=== PATIENT | female | born 1940 | race Caucasian/White ===

== ENCOUNTER → 2018-11-06 | Day surgery (SDC) | payer MEDICARE ==
[2018-11-04 10:35] LABS: BASOPHILS % 0.6 % (0.0-1.0); EOSINOPHILS # (AUTO) 0.2 (0.0-0.4); EOSINOPHILS % 2.5 % (0.0-6.0); HEMATOCRIT 40.2 % (34.2-44.1); HEMOGLOBIN 13.4 g/dL (12.0-16.0); LYMPHOCYTES # (AUTO) 2.1 (1.0-3.2); LYMPHOCYTES % 30.2 % (18.0-39.1); MEAN CORPUSCULAR HEMOGLOBIN 30.7 pg (28-32); MEAN CORPUSCULAR HGB CONC 33.3 g/dL (31-35); MONOCYTES # (AUTO) 0.7 (0.2-0.8); MONOCYTES % 9.6 % (4.4-11.3); NEUTROPHILS # (AUTO) 3.9 (2.1-6.9); PLATELET COUNT 262 x10e3/uL (140-360); RED BLOOD COUNT 4.37 x10e6/uL (3.6-5.1)
[2018-11-04 10:45] LABS: INR 0.88; PARTIAL THROMBOPLASTIN TIME 32.3 seconds (23.8-35.5); PROTHROMBIN TIME 12.4 seconds (11.9-14.5)
[2018-11-04 11:52] LABS: ANION GAP 17.1 mmol/L (8-16); BLOOD UREA NITROGEN 24 mg/dL (7-26); BUN/CREATININE RATIO 29 (6-25); CALCIUM 9.5 mg/dL (8.4-10.2); CARBON DIOXIDE 24 mmol/L (22-29); CHLORIDE 104 mmol/L (98-107); CREATININE, SERUM 0.84 mg/dL (0.57-1.11); EST GLOMERULAR FILTRATION RATE > 60 ML/MIN (60-); GLUCOSE 100 mg/dL (74-118); POTASSIUM 4.1 mmol/L (3.5-5.1); SODIUM 141 mmol/L (136-145)
[2018-11-06] VITALS (7 sets, daily range): BP systolic 97–172; BP diastolic 58–96
[~2018-11-06] VITALS: Ht 157.5 cm; Wt 72.6 kg
[~2018-11-06] MED LIST: AMLODIPINE BESY10 MG PO; ASPIR 8181 MG PO; ASPIRIN 325 MG TAB ONE; DRAMAMINE LESS25 MG PO; FENOFIBRATE145 MG PO; FENTANYL CITRATE/PF 100MCG/2 ML INJ ONE; HEPARIN SOD (PORCINE) 1000 UNIT/ML 30ML ONE; HEPARIN SOD/SOD CHLORIDE 2,000 ML ONE; IOPAMIDOL 370 MG/ML 200 ML INFUS..BTL INJ ONE; LETROZOLE2.5 MG PO; LIDOCAINE HCL 2% LOCAL 20 ML VIAL ONE; METOPROLOL SUCC25 MG PO; MIDAZOLAM HCL 2 MG/2 ML VIAL ONE; NITROGLYCERIN/D5W 200 MCG/ML 250 ML ONE; SODIUM CHLORIDE 0.9% 1000ML 1,000 ML ONE; VERAPAMIL HCL 2.5 MG/ML 2 ML VIAL ONE; Z.0.LOSARTAN POTASS2 PO; Z.0.SERTRALINE HCL25 PO
--- OUTSIDE RECORDS SUMMARY | 2018-11-06 07:32 | XMS REPORT | Clinical Summary ---
Author Author [facility] Address Unknown Phone Unavailable Care Team Providers Care Roof Fitter Name Role Phone Chris Ayala MD PCP Allergies Comments Active Allergy Reactions Severity Noted Date Penicillins 11/10/2017 Medications End Date Status Medication Sig Dispensed Refills Start Date Active fenofibrate (TRICOR) 145 Take 1 tablet 0 MG tablet by mouth daily. Active sertraline (ZOLOFT) 100 Take 1 tablet 0 201 MG tablet by mouth 8 daily. Active losartan (COZAAR) 25 MG Take 1 tablet 0 tablet by mouth daily. Active letrozole (FEMARA) 2.5 mg Take 2.5 mg 0 chemo tablet by mouth daily. Active aspirin (ECOTRIN) 81 MG Take 81 mg by 0 enteric coated tablet mouth daily as needed. 12/10/2017 butalbital-acetaminophen- Take 1 15 capsule 0 caff (FIORICET) 50-300-40 capsule by 8 mg capsule mouth 2 (two) times a day as needed (headache) for up to 30 days. Active Problems Not on file Encounters Care Team Description Date Type Specialty Paul Howard DO Episodic cluster headache, not intractable (Primary Dx) 11/10/2017 Emergency Emergency Medicine after 11/05/2017 Social History Date Tobacco Use Types Packs/Day Years Used Never Smoker Smokeless Tobacco: Never Used Alcohol Use Drinks/Week oz/Week Comments Yes 1 Glasses of 0.6 Drinks wine occassionally wine Sex Assigned at Date Recorded Not on file Industry Job Start Date Occupation Not on file Not on file Not on file Travel End Travel History Travel Start No recent travel history available. Last Filed Vital Signs Time Taken Vital Sign Reading 11/10/2017 8:19 PM CDT Blood Pressure 159/71 11/10/2017 8:19 PM CDT Pulse 73 11/10/2017 8:19 PM CDT Temperature 36.8 C (98.2 F) 11/10/2017 8:19 PM CDT Respiratory Rate 17 11/10/2017 8:19 PM CDT Oxygen Saturation 93% - Inhaled Oxygen - Concentration 11/10/2017 6:58 PM CDT Weight 71.7 kg (158 lb) 11/10/2017 6:58 PM CDT Height 157.5 cm (5' 2") 11/10/2017 6:58 PM CDT Body Mass Index 28.9 Plan of Treatment Health Maintenance Due Date Last Done Comments SHINGLES VACCINES (#1) 1991 65+ PNEUMOCOCCAL VACCINE 2006 (1 of 2 - PCV13) INFLUENZA VACCINE 12/12/2018 Procedures Comments Procedure Name Priority Date/Time Associated Diagnosis CT HEAD WO CONTRAST STAT 11/10/2017 7:55 PM CDT ZZESTIMATED GFR STAT 11/10/2017 7:15 PM CDT BASIC METABOLIC PANEL STAT 11/10/2017 7:15 PM CDT HC COMPLETE BLD COUNT STAT 11/10/2017 W/AUTO DIFF 7:15 PM CDT after 11/05/2017 Results * CT Head Wo Contrast (11/10/2017 7:55 PM CDT) Specimen Narrative Performed At EXAMINATION: CT HEAD WO CONTRAST HM RADIANT CLINICAL HISTORY: new onset headache COMPARISON:09/16/[address] TECHNIQUE: Noncontrast enhanced images of the brain were obtained from the skull base to the vertex. Both soft tissue and bone reconstruction algorithms were performed. CT scans are performed using radiation dose reduction techniques (iterative reconstruction and/or automated exposure control). Technical factors are evaluated and adjusted to ensure appropriate moderation of exposure. Automated dose management technology is applied to adjust radiation exposure while achieving a diagnostic quality image. FINDINGS: Age-related brain parenchymal volume loss. Minimal hypoattenuation of the supratentorial white matter, likely chronic microangiopathic changes. Mild cerebrovascular calcifications. The brain parenchyma is otherwise unremarkable. The collier-white matter differentiation is preserved. No evidence of acute intra or extra-axial hemorrhage, mass, mass effect or acute territorial infarction. There is no acute hydrocephalus. Basal cisterns are patent. No acute soft tissue hematoma or laceration. No skull fractures or aggressive bony lesions. Paranasal sinuses and mastoid air cells are clear. Orbits are normal. IMPRESSION: No acute intracranial abnormality identified. [facility]-[id number] Procedure Note Hm Interface, Radiology Results Incoming - 11/10/2017 8:03 PM CDT EXAMINATION: CT HEAD WO CONTRAST CLINICAL HISTORY: new onset headache COMPARISON: 09/16/[address] TECHNIQUE: Noncontrast enhanced images of the brain were obtained from the skull base to the vertex. Both soft tissue and bone reconstruction algorithms were performed. CT scans are performed using radiation dose reduction techniques (iterative reconstruction and/or automated exposure control). Technical factors are evaluated and adjusted to ensure appropriate moderation of exposure. Automated dose management technology is applied to adjust radiation exposure while achieving a diagnostic quality image. FINDINGS: Age-related brain parenchymal volume loss. Minimal hypoattenuation of the supratentorial white matter, likely chronic microangiopathic changes. Mild cerebrovascular calcifications. The brain parenchyma is otherwise unremarkable. The collier-white matter differentiation is preserved. No evidence of acute intra or extra-axial hemorrhage, mass, mass effect or acute territorial infarction. There is no acute hydrocephalus. Basal cisterns are patent. No acute soft tissue hematoma or laceration. No skull fractures or aggressive bony lesions. Paranasal sinuses and mastoid air cells are clear. Orbits are normal. IMPRESSION: No acute intracranial abnormality identified. [facility]-[id number] Performing Organization Address City/State/Zipcode Phone Number [facility] [address] [place] [address] * Estimated GFR (11/10/2017 7:15 PM CDT) GFR Non Af Amer 70 mL/min/1.73 m2 [facility] DEPARTMENT OF PATHOLOGY AND GENOMIC MEDICINE GFR Af Amer 84 mL/min/1.73 m2 [facility] Comment: DEPARTMENT OF Chronic kidney disease: <60 PATHOLOGY AND mL/min/1.73m2 GENOMIC Kidney failure: <15 MEDICINE mL/min/1.73m2 The estimated GFR is calculated from the IDMS-traceable Modification of Diet in Renal Disease Equation. The accuracy of the calculation is poor when the creatinine is normal. Calculated values >90 mL/min/1.73m2 are not reported. This equation has not been validated in children (<18 years), women, the elderly (>70 years), or ethnic groups other than Caucasians and Americans. Specimen Plasma specimen Performing Organization Address City/[facility]/Zipcode Phone Number [address] [place] [address] PATHOLOGY AND [facility] * CBC with platelet and differential (11/10/2017 7:15 PM CDT) WBC 6.65 4.50 - 11.00 k/uL [facility] DEPARTMENT OF PATHOLOGY AND GENOMIC MEDICINE RBC 3.97 (L) 4.20 - 5.50 m/uL [facility] DEPARTMENT OF PATHOLOGY AND GENOMIC MEDICINE HGB 12.2 12.0 - 16.0 g/dL [facility] DEPARTMENT OF PATHOLOGY AND GENOMIC MEDICINE HCT 36.8 (L) 37.0 - 47.0 % [facility] DEPARTMENT OF PATHOLOGY AND GENOMIC MEDICINE MCV 92.7 82.0 - 100.0 fL [facility] DEPARTMENT OF PATHOLOGY AND GENOMIC MEDICINE MCH 30.7 27.0 - 34.0 pg [facility] DEPARTMENT OF PATHOLOGY AND GENOMIC MEDICINE MCHC 33.2 31.0 - 37.0 g/dL [facility] DEPARTMENT OF PATHOLOGY AND GENOMIC MEDICINE RDW - SD 47.5 37.0 - 55.0 fL [facility] DEPARTMENT OF PATHOLOGY AND GENOMIC MEDICINE MPV 11.5 8.8 - 13.2 fL [facility] DEPARTMENT OF PATHOLOGY AND GENOMIC MEDICINE Platelet count 252 150 - 400 k/uL [facility] DEPARTMENT OF PATHOLOGY AND GENOMIC MEDICINE Nucleated RBC 0.00 /100 WBC [facility] DEPARTMENT OF PATHOLOGY AND GENOMIC MEDICINE Neutrophils 56.2 39.0 - 69.0 % [facility] DEPARTMENT OF PATHOLOGY AND GENOMIC MEDICINE Lymphocytes 25.7 25.0 - 45.0 % [facility] DEPARTMENT OF PATHOLOGY AND GENOMIC MEDICINE Monocytes 15.6 (H) 0.0 - 10.0 % [facility] DEPARTMENT OF PATHOLOGY AND GENOMIC MEDICINE Eosinophils 1.8 0.0 - 5.0 % [facility] DEPARTMENT OF PATHOLOGY AND GENOMIC MEDICINE Basophils 0.5 0.0 - 1.0 % [facility] DEPARTMENT OF PATHOLOGY AND GENOMIC MEDICINE Specimen Blood Performing Organization Address City/[facility]/Zipcode Phone Number [address] [place] [address] PATHOLOGY AND GENOMIC MEDICINE * Basic metabolic panel (11/10/2017 7:15 PM CDT) Sodium 135 135 - 148 mEq/L [facility] DEPARTMENT OF PATHOLOGY AND GENOMIC MEDICINE Potassium 3.9 3.5 - 5.0 mEq/L [facility] DEPARTMENT OF PATHOLOGY AND GENOMIC MEDICINE Chloride 99 98 - 112 mEq/L [facility] DEPARTMENT OF PATHOLOGY AND GENOMIC MEDICINE CO2 23 (L) 24 - 31 mEq/L [facility] DEPARTMENT OF PATHOLOGY AND GENOMIC MEDICINE Anion gap 13@ANIO 7 - 15 mEq/L [facility] DEPARTMENT OF PATHOLOGY AND GENOMIC MEDICINE BUN 27 (H) 8 - 23 mg/dL [facility] DEPARTMENT OF PATHOLOGY AND GENOMIC MEDICINE Creatinine 0.8 0.5 - 0.9 mg/dL [facility] DEPARTMENT OF PATHOLOGY AND GENOMIC MEDICINE Glucose 107 (H) 65 - 99 mg/dL [facility] DEPARTMENT OF PATHOLOGY AND GENOMIC MEDICINE Calcium 8.9 8.8 - 10.2 mg/dL [facility] DEPARTMENT OF PATHOLOGY AND GENOMIC MEDICINE Specimen Plasma specimen Performing Organization Address City/State/Zipcode Phone Number [facility] DEPARTMENT [address] [place] [address] PATHOLOGY AND GENOMIC MEDICINE after 11/05/2017 Insurance Type Payer Benefit Subscriber ID Effective Phone Address Plan / Dates Group Medicare MEDICARE MEDICARE xxxxxxxxxx 2017- [place], PART A AND Present [place] B PPO AETNA AETNA PPO xxxxxxxxxx 1990- OPEN Present CHOICE Advance Directives Patient has advance care planning documents on file. For more information, deepa e contact: Zac Duran [address] [place] [address]
--- NOTE | 2018-11-06 09:13 | NUR ---
0913 Received pt in #10 Identifierx2 [facility]. Dr Murray No fix. Rt TR band approach.Back to baseline orientation Ox4 Respiration shallow and regular. Abdomen soft and non tender Denies necessity to defecate or urinate Iv infusing well NO s/s infiltration infusing at 100cchr Bilateral PPx4 PT/Dp POC explained has copies and prescription aware of importance f/o care. No gross issues pain pallor pressure or dysrhythmia.Rt TR band ok to reduce 12cc air at 10:10am at bedside [place]. W[place]ell spoke with pt regarding POC with patient and family. Signed papers and aware of f/o Has copies of POC and prescription. ds/rn
--- NOTE | 2018-11-06 10:10 | NUR ---
1010am TR band air removal in progress Normal neuro-vascular unction. NO ooze. -2cc positive 10cc. 1030am -2cc positive 8cc no ooze noted, Normal neurovascular function.
--- NOTE | 2018-11-06 10:45 | NUR ---
1045am last TR band air removed Site stable positive-neuro vascular function No gross issues pain, pallor, pressure, or dysrhythmia. No oozing at site. Coban with sterile 2x2 and Tegaderm and arm splint in place. Iv removed no hematoma or infiltration. Coban and 2x2 dressing applied Aware of importance of f/o care. Has copies of dc papers. 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 Denies c/o CP or SOB. ds/rn
--- NOTE | 2018-11-07 15:23 | Operative Report ---
DATE OF PROCEDURE: 11/06/2018 SURGEON: Raymond Neumann MD PROCEDURE INDICATION: Chest pain concerning for angina pectoris with abnormal stress test. PROCEDURE PERFORMED: 1. Left heart catheterization. 2. Selective coronary angiography. 3. Right radial TR band hemostasis. PROCEDURE COMPLICATIONS: None. ESTIMATED BLOOD LOSS: Less than 15 mL. PROCEDURE SUMMARY: After consent was obtained, the patient was prepped and draped in a sterile fashion. The right radial site was locally infiltrated with 2% lidocaine. Access was obtained with a single anterior stick and a 5-Lithuanian long sheath was advanced over wire. A cocktail with nitroglycerin, verapamil and heparin was administered. TIG catheter, 5-Lithuanian was used for engagement of the left main, the right coronary artery, as well as across the aortic valve for hemodynamic measurements. These were the following findings: 1. LV pressure was 107/5 with end-diastolic pressure of 16. 2. Aortic pressure is 101/49. 3. There was no left ventriculogram performed. 4. Left main is large in caliber with luminal irregularities giving a large caliber LAD, ramus intermedius of small to medium caliber and a large caliber circumflex. The LAD has luminal irregularities and calcifications throughout. The septal perforators and diagonals arise from this vessel and are small in caliber. 5. The ramus intermedius has luminal irregularities with calcifications of mild to moderate severity. 6. The circumflex also has calcifications and mild to moderate severity, giving at least three small caliber and short obtuse marginals and two small to medium caliber left posterolateral branches. Luminal irregularities are noted throughout the circ and its branches. The right coronary artery is dominant. In the ostium, there is a 50% area of focal stenosis. They are two RV marginals in the midportion and a terminal RPDA and RPLV is observed. 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 RECOMMENDATIONS: Continue medical optimization and treatment for coronary artery disease. Wean TR band. Follow up in office in 4-6 weeks. Raymond Neumann MD AFV/MODL /[id number]
== END | disposition home or self-care (01) ==
LOC: CATH LAB 07:18
PROVIDERS: ATTEND Internal Medicine Cardiovascular Disease
DX: I25.119 Atherosclerotic heart disease of native coronary artery with unspecified angina pectoris (principal); R94.39 Abnormal result of other cardiovascular function study; I10 Essential (primary) hypertension; R00.2 Palpitations; E78.5 Hyperlipidemia, unspecified; E66.01 Morbid (severe) obesity due to excess calories; F32.9 Major depressive disorder, single episode, unspecified; Z01.810 Encounter for preprocedural cardiovascular examination; Z01.812 Encounter for preprocedural laboratory examination; Z79.82 Long term (current) use of aspirin; Z85.3 Personal history of malignant neoplasm of breast; Z82.49 Family history of ischemic heart disease and other diseases of the circulatory system
CPT/HCPCS: 36415; 80048; 85025; 85610; 85730; 93005; 93458; C1769; C1887; J1644; J2001; J2250; J7030; Q9967; J3010